=== PATIENT | female | born 1990 | race Caucasian/White ===

== ENCOUNTER → 2023-07-07 16:18 | Outpatient (CLI) | payer OTHER, SELFPAY ==
--- NOTE | 2023-07-07 16:24 | US_ITS ---
PROCEDURE: US OB >= 14 WEEKS FETUS CLINICAL INDICATION: for dates COMPARISON: FINDINGS: Transabdominal sonographic images of the pelvis were obtained. Her established due date is unknown. The following parameters are obtained: Viable fetus in the cephalic presentation with an anterior placenta grade 0. Amniotic fluid appears normal. Average ultrasound age is 15weeks 6days Estimated due date by ultrasound is 12/23/2023. Estimated weight is 132 grams Cervix measures 3.0 cm. heart rate: Not recorded but Doppler heart rate activity is seen. BPD: 16 weeks 0 days OFD: 15weeks 5days HC: 15 weeks 4 days AC: 16 weeks 0 days FL: 15 weeks 4 days HC/AC: 1.15 Cephalic index: 0.8 FL/BPD: 0.58 FL/AC: 0.19 IMPRESSION: 1. Viable fetus in the cephalic presentation within the uterine cavity. Placenta is anterior. 2. Fluid is within normal limits. 3. From the biometry her PIPER will be 12/23/2023. 4. Suggest complete anatomical scan at 20 weeks. Dictated by: Jesús Bowles MD 07/09/2023 13:24 Jesús Bowles MD in [facility] 07/09/2023 13:24
== END ==
LOC: RAD 16:19
PROVIDERS: Visit Provider Obstetrics & Gynecology
DX: Z34.92 Encounter for supervision of normal pregnancy, unspecified, second trimester (principal); Z3A.25 25 weeks gestation of pregnancy
CPT/HCPCS: 76805

== ENCOUNTER → 2023-07-07 23:16 | Outpatient (CLI) | payer OTHER, SELFPAY | LOC: LAB.DROPOF 23:16 | PROVIDERS: PCP Obstetrics & Gynecology; Visit Provider Obstetrics & Gynecology | DX: Z34.92 Encounter for supervision of normal pregnancy, unspecified, second trimester (principal); Z3A.25 25 weeks gestation of pregnancy ==

== ENCOUNTER → 2023-07-08 10:13 | Outpatient (CLI) | payer OTHER, SELFPAY ==
[2023-07-08 10:47] LABS: Basophils % 0.2 % (0.1-2.0); Eosinophils # 0.2 K/mm3 (0.0-0.4); Eosinophils % 2.2 % (0.1-12.0); Hematocrit 35.8 % (37.0-47.0); Hemoglobin 12.6 g/dL (12.2-16.2); Lymphocytes # 1.3 K/mm3 (0.7-4.5); Lymphocytes % 16.9 % (10-50); Mean Corpuscular Hemoglobin 29.9 pg (27.0-31.2); Mean Corpuscular Volume 85.4 fl (81-99); Mean Platelet Volume 7.6 fl (7.4-10.4); Monocytes # 0.4 K/mm3 (0.1-1.0); Monocytes % 4.6 % (1.7-9.3); Neutrophils # 5.9 K/mm3 (1.8-7.8); Neutrophils % 76.1 % (37.0-80.0); Platelet Count 227 K/mm3 (142-424); Red Cell Distribution Width 13.5 % (11.5-17.5); White Blood Count 7.7 K/mm3 (4.8-10.8)
[2023-07-09 09:48] LABS: Rapid Plasma Reagin Ab Titer Non Reactive titer (NonRea<1:1)
[2023-07-09 10:13] LABS: HIV Screen 4th Generation wRfx Non Reactive (Non Reactive)
[2023-07-11 08:16] LABS: Hepatitis B Surface Antigen Negative; Hepatitis C Antibody Non Reactive; Rubella Antibodies, IgG 7.47
== END ==
LOC: LAB 10:13
PROVIDERS: Visit Provider Obstetrics & Gynecology
DX: Z34.92 Encounter for supervision of normal pregnancy, unspecified, second trimester (principal); Z3A.25 25 weeks gestation of pregnancy
CPT/HCPCS: 36415; 85025; 86593; 86703; 86762; 86850; 87086; 87340; 87380; G0432